=== PATIENT | female | born 1960 | race Caucasian/White ===

== ENCOUNTER 2017-09-21 09:01 | Day surgery (SDC) | payer BC ==
[~2017-09-21 09:01] MED LIST: CEFAZOLIN 1 GM/50 ML (PMX) 50 ML IVPB; SOD CHLORIDE 0.9% 1,000 ML IV
[2017-09-21] MEDS ORDERED: ROCURONIUM 50 MG INJ (10:57)
[2017-09-21] MEDS ORDERED: CEFAZOLIN 1 GM INJ (10:57)
[2017-09-21] MEDS ORDERED: GLYCOPYRROLATE 0.4 MG INJ (10:57)
[2017-09-21] MEDS ORDERED: MIDAZOLAM 1 MG/ML 2 ML INJ (10:57)
[2017-09-21] MEDS ORDERED: PROPOFOL 20 ML (10:57)
[2017-09-21] MEDS ORDERED: NEOSTIGMINE 3 MG/3 ML SYRINGE (10:57)
[2017-09-21] MEDS ORDERED: FENTAnyl 50 MCG/ML VIAL (10:58)
[2017-09-21] MEDS ORDERED: ONDANSETRON 4 MG INJ (10:58)
[2017-09-21] MEDS ORDERED: DEXAMETHASONE 4 MG/ML 1 ML INJ (10:58)
[2017-09-21] MEDS: BUPIVACAINE 0.25% (MPF) 30 ML INJ (11:36)
[2017-09-21] MEDS ORDERED: SUGAMMADEX SODIUM 200 MG/2 ML VIAL IV (11:46)
[2017-09-21] MEDS ORDERED: HYDROCODONE/APAP (5/325) TAB PO (12:00)
[2017-09-21] MEDS: BACITRACIN/POLYMYXIN 28.35 GM OINT TOP (12:07)
== END 2017-09-21 13:51 | disposition home or self-care (01) ==
LOC: SDS 09:01
DX: L72.11 Pilar cyst (principal)
CPT/HCPCS: 14021; 88307